=== PATIENT | female | born 1980 | race African-American/Black ===

== ENCOUNTER 2016-12-01 19:28 | Emergency (ER) | payer MEDICAID, OTHER ==
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
[2016-12-01 20:59] VITALS: BP 127/75
== END 2016-12-01 20:20 | disposition home or self-care (01) ==
LOC: ED 19:28
DX: S09.90XA Unspecified injury of head, initial encounter (principal); M54.2 Cervicalgia; M25.512 Pain in left shoulder; M25.511 Pain in right shoulder; F17.210 Nicotine dependence, cigarettes, uncomplicated; V49.9XXA Car occupant (driver) (passenger) injured in unspecified traffic accident, initial encounter; Y93.9 Activity, unspecified; Y92.9 Unspecified place or not applicable; Y99.9 Unspecified external cause status
CPT/HCPCS: 99281

== ENCOUNTER 2016-12-02 19:40 | Emergency (ER) | payer OTHER ==
[2016-12-02] MEDS ORDERED: Ketorolac INJ* 60 MG/2 ML VIAL IM ONE (20:11)
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
[2016-12-02 21:15] VITALS: BP 146/78
== END 2016-12-02 21:12 | disposition home or self-care (01) ==
LOC: ED 19:40
DX: T14.8 Other injury of unspecified body region (principal); R51 Headache; F17.210 Nicotine dependence, cigarettes, uncomplicated; V49.9XXA Car occupant (driver) (passenger) injured in unspecified traffic accident, initial encounter; Y93.9 Activity, unspecified; Y92.9 Unspecified place or not applicable; Y99.9 Unspecified external cause status
CPT/HCPCS: 96372; 99282; J1885

== ENCOUNTER 2016-12-03 09:17 | Emergency (ER) | payer OTHER ==
[2016-12-03] MEDS ORDERED: NS 0.9% 1000 ML* 1,000 ML IV ONE (10:24)
[2016-12-03] MEDS ORDERED: Ketorolac INJ* 30 MG/ML 1 ML VIAL IV ONE (10:24)
[2016-12-03 11:10] LABS: Hematocrit 38 % (35-47); Hemoglobin 12.7 g/dl (12.0-16.0); Mean Corpuscular HGB Conc 34 g/dl (31-36); Mean Corpuscular Hemoglobin 33 pg (27-31); Mean Corpuscular Volume 100 fL (80-97); Mean Platelet Volume 7 um3 (7.4-10.4); Red Blood Count 3.81 10^6/ul (4.0-5.4); Red Cell Distribution Width 15 % (10.5-15); White Blood Count 3.8 10^3/ul (3.5-10.8)
[2016-12-03 11:13] LABS: Urine Bilirubin Negative (Negative); Urine Glucose Negative (Negative); Urine Nitrite Negative (Negative)
[2016-12-03] MEDS ORDERED: Iohexol 300* (CONTRAST) 10 ML SDV IV ONE (11:42)
[2016-12-03 11:56] LABS: ALT 97 U/L (7-52); AST 141 U/L (13-39); Albumin 4.4 g/dL (3.2-5.2); Alkaline Phosphatase 97 U/L (34-104); Anion Gap 15 mmol/L (2-11); BUN/Creatinine Ratio 9.4 (8-20); Blood Urea Nitrogen 9 mg/dL (6-24); C Reactive Protein < 1.00 mg/L (< 5.00); CO2 Carbon Dioxide 20 mmol/L (22-32); Calcium 9.2 mg/dL (8.6-10.3); Chloride 104 mmol/L (101-111); Creatine Kinase 163 U/L (10-223); EGFR African American 83.6 (>60); Globulin 3.9 g/dL (2-4); Glucose 84 mg/dL (70-100); Lipase 19 U/L (11.0-82.0); Magnesium 2.3 mg/dL (1.9-2.7); Potassium 3.5 mmol/L (3.5-5.0); Sodium 139 mmol/L (133-145); Total Protein 8.3 g/dL (6.4-8.9)
--- NOTE | 2016-12-03 12:19 | RAD ---
INDICATION: Abdominal pain. COMPARISON: There are no prior studies available for comparison. TECHNIQUE: A CT scan of the abdomen and pelvis was performed with intravenous and oral contrast following intravenous injection of 132 ml of Omnipaque 300 nonionic contrast. Contiguous axial sections were obtained from the lung bases through the symphysis pubis. Images were reconstructed in the coronal and sagittal planes. FINDINGS: The lung bases are clear. No pleural effusion is present. The liver is mildly enlarged and decreased in attenuation consistent with fatty infiltration. There appears to be more focal fatty infiltration in the anterior aspect of the lateral segment of the left hepatic lobe. The spleen is normal in size. There is a hypodense near fluid density lesion in the medial aspect of the spleen measuring 1.1 cm in size. No calcified gallstones are seen. The pancreas appears to be within normal limits in size. No ductal distention is seen. The kidneys and adrenal glands are normal in size. No hydronephrosis is seen. No significant focal renal abnormality is seen. The aorta is normal in caliber and demonstrates homogeneous contrast opacification. No significant enlarged retroperitoneal lymph nodes are seen. The stomach, small and large bowel appear nondistended. There is a small hiatal hernia present. The appendix is normal in size without evidence for inflammatory change. There is mild descending and sigmoid diverticulosis without evidence for diverticulitis. There is a small periumbilical hernia containing fat. The uterus is retroverted and normal in size. No free intraperitoneal air or fluid is seen. No significant focal osseous abnormality is seen. IMPRESSION: 1. NO EVIDENCE FOR ACUTE FINDING OR CAUSE FOR THE PATIENT'S ABDOMINAL PAIN IS SEEN. 2. MILD HEPATOMEGALY AND HEPATIC STEATOSIS. 3. SMALL HYPODENSE SPLENIC LESION LIKELY INCIDENTAL.
[2016-12-03] MEDS ORDERED: Famotidine TAB* 20 MG PO ONE (12:26)
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
[2016-12-03 13:16] VITALS: BP 128/72
== END 2016-12-03 13:15 | disposition home or self-care (01) ==
LOC: ED 09:17
DX: R10.9 Unspecified abdominal pain (principal); R11.2 Nausea with vomiting, unspecified
CPT/HCPCS: 36415; 74177; 80053; 81003; 82550; 83690; 83735; 83880; 84702; 85025; 86140; 96374; 99283; A9270-GY; J1885; Q9967

== ENCOUNTER → 2016-12-04 15:07 | Emergency (ER) | payer OTHER ==
[2016-12-04 15:12] VITALS: BP 139/86
== END | disposition left against medical advice (07) ==
LOC: ED 15:07
DX: Z00.00 Encounter for general adult medical examination without abnormal findings (principal); Z53.21 Procedure and treatment not carried out due to patient leaving prior to being seen by health care provider

== ENCOUNTER 2017-01-30 15:27 | Emergency (ER) | payer OTHER ==
[2017-01-30 16:35] LABS: Hematocrit 41 % (35-47); Hemoglobin 13.2 g/dl (12.0-16.0); Mean Corpuscular HGB Conc 33 g/dl (31-36); Mean Corpuscular Hemoglobin 33 pg (27-31); Mean Corpuscular Volume 102 fL (80-97); Mean Platelet Volume 8 um3 (7.4-10.4); Red Blood Count 3.99 10^6/ul (4.0-5.4); Red Cell Distribution Width 14 % (10.5-15); White Blood Count 5.5 10^3/ul (3.5-10.8)
[2017-01-30 17:05] LABS: ALT 43 U/L (7-52); AST 55 U/L (13-39); Albumin 4.2 g/dL (3.2-5.2); Alkaline Phosphatase 74 U/L (34-104); Anion Gap 10 mmol/L (2-11); BUN/Creatinine Ratio 13.5 (8-20); Blood Urea Nitrogen 12 mg/dL (6-24); CO2 Carbon Dioxide 28 mmol/L (22-32); Calcium 9.8 mg/dL (8.6-10.3); Chloride 99 mmol/L (101-111); EGFR African American 91.3 (>60); Globulin 3.4 g/dL (2-4); Glucose 77 mg/dL (70-100); Potassium 3.2 mmol/L (3.5-5.0); Sodium 137 mmol/L (133-145); Total Protein 7.6 g/dL (6.4-8.9)
[2017-01-30 17:43] LABS: Lithium < 0.10 mmol/L (0.6-1.2)
[2017-01-30 18:28] VITALS: BP 153/93
--- NOTE | 2017-02-05 22:41 | ED ---
Substance Abuse/Use - HPI Summary HPI Summary: Patient presents to obtain labwork for detox/rehab. She states last ETOH and drug use was over 1 week ago. She is attending tomorrow. She denies pain, chance of , or other complaints. - History Of Current Complaint Chief Complaint: EDDetoxRequest Stated Complaint: REHAB CLEARENCE Time Seen by Provider: 01/30/17 15:57 Hx Obtained From: Patient ?: No Ingestion History: Amount Ingested - 1L vodka daily Overdose Characteristics: Oral Timing Of Abuse: Daily Severity Initially: Moderate Severity Currently: Mild Character: Depressed Aggravating Factor(s): Nothing, Recent Stress Alleviating Factor(s): Nothing Associated Signs And Symptoms: Negative - Risk Factor(s) Completed Suicide Risk Factors: Negative - Allergies/Home Medications Allergies/Adverse Reactions: Allergies Allergy/AdvReac Type Severity Reaction Status Date / Time Penicillins [PCN] Allergy Severe Hives Verified 12/03/16 10:52 Shellfish Allergy Allergy Swelling Verified 12/03/16 10:52 Of Face,Lips,& Throat PMH/Surg Hx/FS Hx/Imm Hx Previously Healthy: Yes Endocrine/Hematology History: Denies: Hx Diabetes Cardiovascular History: Denies: Hx Hypertension Respiratory History: Reports: Hx Asthma, Hx Seasonal Allergies History: Denies: Hx Renal Disease Psychiatric History: Reports: Hx Bipolar Disorder Denies: Hx Eating Disorder, Hx of Violent Episodes Against Others - Surgical History Surgery Procedure, Year, and Place: BARIATRIC SURGERY - Immunization History Hx Pertussis Vaccination: No Immunizations Up to Date: Yes Infectious Disease History: No Infectious Disease History: Denies: Traveled Outside the [place] in Last 30 Days - Family History Known Family History: Positive: None - pt denies knowing significant FHx, Diabetes Negative: Hypertension Family History: FHx of bipolar disorder - Social History Occupation: Employed Full-time Lives: With Family Alcohol Use: None Alcohol Amount: "unsure" of daily amount, previous documentation 1 Liter vodka/ day Hx Substance Use: No Substance Use Type: Reports: Marijuana Substance Use Comment - Amount & Last Used: Pt denies Hx Tobacco Use: Yes Smoking Status (MU): Heavy Every Day Tobacco Smoker Amount Used/How Often: half PPD Review of Systems Constitutional: Negative Eyes: Negative Cardiovascular: Negative Respiratory: Negative Positive: no symptoms reported, see HPI Skin: Negative Neurological: Negative Psychological: Normal All Other Systems Reviewed And Are Negative: Yes Physical Exam Triage Information Reviewed: Yes Vital Signs On Initial Exam: Initial Vitals Temp Pulse Resp BP Pulse Ox 97.7 F 104 16 158/72 100 01/30/17 15:40 01/30/17 15:40 01/30/17 15:40 01/30/17 15:40 01/30/17 15:40 Completion Of Physical Exam Limited Due To: Dementia Appearance: Positive: Well-Appearing, Well-Nourished Skin: Positive: Warm, Skin Color Reflects Adequate Perfusion Eyes: Positive: Normal, [place], Conjunctiva Clear Neck: Positive: Supple, No Lymphadenopathy Respiratory/Lung Sounds: Positive: Clear to Auscultation, Breath Sounds Present Cardiovascular: Positive: Normal, RRR, Pulses are Symmetrical in both Upper and Lower Extremities Musculoskeletal: Positive: Strength/ROM Intact Neurological: Positive: Alert, Oriented to Person Place, Time, Speech Normal Psychiatric: Positive: Normal - Eligio Coma Scale Coma Scale Total: 15 Diagnostics - Vital Signs Vital Signs Temp Pulse Resp BP Pulse Ox 01/30/17 18:27 79 16 153/93 01/30/17 16:28 97.7 F 104 16 158/72 100 01/30/17 15:40 97.7 F 104 16 158/72 100 - Laboratory Lab Results: Lab Results 01/30/17 01/30/17 Range/Units 16:21 16:21 WBC 5.5 (3.5-10.8) 10^3/ul RBC 3.99 L (4.0-5.4) 10^6/ul Hgb 13.2 (12.0-16.0) g/dl Hct 41 (35-47) % MCV 102 H (80-97) fL MCH 33 H (27-31) pg MCHC 33 (31-36) g/dl RDW 14 (10.5-15) % Plt Count 231 (150-450) 10^3/ul MPV 8 (7.4-10.4) um3 Sodium 137 (133-145) mmol/L Potassium 3.2 L (3.5-5.0) mmol/L Chloride 99 L (101-111) mmol/L Carbon Dioxide 28 (22-32) mmol/L Anion Gap 10 (2-11) mmol/L BUN 12 (6-24) mg/dL Creatinine 0.89 (0.51-0.95) mg/dL Est GFR ( Amer) 91.3 (>60) Est GFR (Non-Af Amer) 71.0 (>60) BUN/Creatinine Ratio 13.5 (8-20) Glucose 77 (70-100) mg/dL Calcium 9.8 (8.6-10.3) mg/dL Total Bilirubin 1.60 H (0.2-1.0) mg/dL AST 55 H (13-39) U/L ALT 43 (7-52) U/L Alkaline Phosphatase 74 (34-104) U/L Total Protein 7.6 (6.4-8.9) g/dL Albumin 4.2 (3.2-5.2) g/dL Globulin 3.4 (2-4) g/dL Albumin/Globulin Ratio 1.2 (1-3) Beta HCG, Quant 1.03 mIU/mL [place] < 0.10 L (0.6-1.2) mmol/L Result Diagrams: 01/30/17 16:21 01/30/17 16:21 Lab Statement: Any lab studies that have been ordered have been reviewed, and results considered in the medical decision making process. Course/Dx - Course Course Of Treatment: Labs, HCG, EKG all WNL and sent to rehabilitation center. Patient in stable condition. - Diagnoses Differential Diagnosis/HQI/PQRI: Positive: Alcohol Abuse, Alcohol Withdrawal, Depression, Drug Abuse Provider Diagnoses: S/P alcohol detoxification Discharge - Discharge Plan Condition: Stable Disposition: HOME Referrals: Mp Carranza MD [Primary Care Provider] -
== END 2017-01-30 18:27 | disposition home or self-care (01) ==
LOC: ED 15:27
DX: F10.239 Alcohol dependence with withdrawal, unspecified (principal); F17.210 Nicotine dependence, cigarettes, uncomplicated
CPT/HCPCS: 36415; 80053; 80178; 84702; 85027; 93005; 99282

== ENCOUNTER 2018-04-10 19:23 | Emergency (ER) | payer OTHER ==
--- NOTE | 2018-04-10 20:12 | ED ---
Psychiatric Complaint - HPI Summary HPI Summary: Pt is a 37 y/o F who presents to ED c/o depression with SIs without a plan. Pt reports she "just wasn't happy" and that she should be on "a lot of medication" though she has not been taking any of them. PMHx bipolar disorder. - History Of Current Complaint Chief Complaint: [facility]ental[facility] Time Seen by Provider: 04/10/18 19:57 Hx Obtained From: Patient Onset/Duration: Still Present Character: Depressed Aggravating Factor(s): Nothing Alleviating Factor(s): Nothing Related History: Positive For: Prior Psychiatric Issues - Bipolar disorder Has Suicidal: Reports: Thoughts. Denies: With A Plan - Allergies/Home Medications Allergies/Adverse Reactions: Allergies Allergy/AdvReac Type Severity Reaction Status Date / Time Penicillins Allergy Hives Verified 04/10/18 19:34 shellfish derived Allergy Swelling Verified 04/10/18 19:34 Of Face,Lips,& Throat PMH/Surg Hx/FS Hx/Imm Hx Endocrine/Hematology History: Denies: Hx Diabetes Cardiovascular History: Denies: Hx Hypertension Respiratory History: Reports: Hx Asthma, Hx Seasonal Allergies History: Denies: Hx Renal Disease Psychiatric History: Reports: Hx Bipolar Disorder Denies: Hx Eating Disorder, Hx of Violent Episodes Against Others - Surgical History Surgery Procedure, Year, and Place: BARIATRIC SURGERY Infectious Disease History: No Infectious Disease History: Denies: Traveled Outside the [place] in Last 30 Days - Family History Known Family History: Positive: Diabetes Negative: Hypertension Family History: FHx of bipolar disorder - Social History Alcohol Use: None Alcohol Amount: "unsure" of daily amount, previous documentation 1 Liter vodka/ day Hx Substance Use: No Substance Use Type: Reports: Marijuana Substance Use Comment - Amount & Last Used: Pt denies Hx Tobacco Use: Yes Smoking Status (MU): Heavy Every Day Tobacco Smoker Amount Used/How Often: half PPD Review of Systems Negative: Fever Positive: Depressed, Other - SIs without a plan All Other Systems Reviewed And Are Negative: Yes Physical Exam - Summary Physical Exam Summary: VITAL SIGNS: Reviewed. GENERAL: Patient is a well-developed and nourished female who is lying comfortable in the stretcher. Patient is not in any acute respiratory distress. HEAD AND FACE: No signs of trauma. No ecchymosis, hematomas or skull depressions. No sinus tenderness. EYES: PERRLA, EOMI x 2, No injected conjunctiva, no nystagmus. EARS: Hearing grossly intact. Ear canals and tympanic membranes are within normal limits. MOUTH: Oropharynx within normal limits. NECK: Supple, trachea is midline, no adenopathy, no JVD, no carotid bruit, no c- spine tenderness, neck with full ROM. CHEST: Symmetric, no tenderness at palpation LUNGS: Clear to auscultation bilaterally. No wheezing or crackles. CVS: Regular rate and rhythm, S1 and S2 present, no murmurs or gallops appreciated. EXTREMITIES: FROM in all major joints, no edema, no cyanosis or clubbing. NEURO: Alert and oriented x 3. No acute neurological deficits. Speech is normal and follows commands. SKIN: Dry and warm PSYCH: Suicidal Triage Information Reviewed: Yes Vital Signs On Initial Exam: Initial Vitals Temp Pulse Resp BP Pulse Ox 98.6 F 105 16 140/77 99 04/10/18 19:26 04/10/18 19:26 04/10/18 19:26 04/10/18 19:26 04/10/18 19:26 Vital Signs Reviewed: Yes Diagnostics - Vital Signs Vital Signs Temp Pulse Resp BP Pulse Ox 04/10/18 19:26 98.6 F 105 16 140/77 99 - Laboratory Result Diagrams: 04/10/18 20:16 04/11/18 01:30 Lab Statement: Any lab studies that have been ordered have been reviewed, and results considered in the medical decision making process. Course/Dx - Course Assessment/Plan: Pt is a 37 y/o F who presents to ED c/o depression with SIs without a plan. Pt reports she "just wasn't happy" and that she should be on "a lot of medication" though she has not been taking any of them. PMHx bipolar disorder. Blood work, toxicologyand UA were done with results including a serum alcohol of 378. Pt will be signed out to Dr. Hawkins, pending dispo, awiating EtOH metabolism and MHE. - Differential Dx/Clinical Impression Provider Diagnosis: Alcohol intoxication Discharge - Sign-Out/Discharge Documenting (check all that apply): Sign-Out Patient Signing out patient TO: Dave Hawkins - Pending MHE - Discharge Plan Referrals: Mp Carranza MD [Primary Care Provider] -
[2018-04-10 20:24] LABS: ABS Basophils 0.1 10^3/ul (0-0.2); ABS Eosinophils 0.1 10^3/ul (0-0.6); ABS Monocytes 0.3 10^3/ul (0-0.8); ABS Neutrophils 6.1 10^3/ul (1.5-7.7); ABS Nucleated RBC 0 10^3/ul; Eosinophil % 1.5 % (0-6); Hematocrit 37 % (35-47); Hemoglobin 12.5 g/dl (12.0-16.0); Mean Corpuscular HGB Conc 34 g/dl (31-36); Mean Corpuscular Hemoglobin 34 pg (27-31); Mean Corpuscular Volume 100 fL (80-97); Mean Platelet Volume 7.1 um3 (7.4-10.4); Nucleated Red Blood Cells % 0.1; Platelet Count 297 10^3/ul (150-450); Red Blood Count 3.67 10^6/ul (4.00-5.40); Red Cell Distribution Width 16 % (10.5-15); White Blood Count 7.6 10^3/ul (3.5-10.8)
[2018-04-10 20:42] LABS: EGFR Non-African American 66.3 (>60)
[2018-04-10] MEDS ORDERED: NS 0.9% 1000 ML* 2,000 ML IV ONE (21:15)
[2018-04-10 22:05] LABS: Urine Appearance Clear; Urine Blood Negative (Negative); Urine Color Yellow; Urine Ketones 1+ (Negative); Urine Protein Negative (Negative); Urine Specific Gravity 1.014 (1.010-1.030); Urine Urobilinogen Negative (Negative)
[2018-04-11 02:09] LABS: EGFR Non-African American 84.7 (>60)
--- NOTE | 2018-04-11 07:13 | ED ---
Course/Dx - Diagnoses Provider Diagnoses: Alcohol intoxication Discharge - Discharge Plan Referrals: Mp Carranza MD [Primary Care Provider] -
[2018-04-11 09:02] VITALS: BP 115/62
== END 2018-04-11 09:48 | disposition home or self-care (01) ==
LOC: ED 19:23
DX: F10.129 Alcohol abuse with intoxication, unspecified (principal); Y90.8 Blood alcohol level of 240 mg/100 ml or more; R45.851 Suicidal ideations; F17.200 Nicotine dependence, unspecified, uncomplicated; Z91.14 Patient's other noncompliance with medication regimen; Z88.0 Allergy status to penicillin
CPT/HCPCS: 36415; 80053; 80307; 80320; 80329; 81003; 82550; 84443; 84702; 85025; 99285; G0480